=== PATIENT | male | born 1980 | race Caucasian/White ===

== ENCOUNTER 2020-12-21 16:18 | Outpatient (CLI) | payer OTHER, SELFPAY ==
[2020-12-21 16:47] LABS: Cholesterol 220 mg/dL (0-200); HDL Direct 44 mg/dL; Triglycerides 306 mg/dL (<150)
[2020-12-21 16:58] LABS: LDL Cholesterol Direct 122 mg/dL
[2020-12-21 19:06] LABS: Free T4 Free Thyroxine 0.87 ng/mL (0.78-2.19)
== END 2020-12-21 16:19 | disposition home or self-care (01) ==
LOC: ANHLAB 16:20
PROVIDERS: PCP Internal Medicine; Visit Provider Internal Medicine
DX: R94.6 Abnormal results of thyroid function studies (principal); R79.89 Other specified abnormal findings of blood chemistry; E78.5 Hyperlipidemia, unspecified
CPT/HCPCS: 36415; 80061; 84439; 84443

== ENCOUNTER 2021-07-17 09:44 | Outpatient (CLI) | payer OTHER, SELFPAY ==
[2021-07-17 10:12] LABS: Anion Gap 6 mmol/L (8-16); Blood Urea Nitrogen 15 mg/dL (9-20); Calcium 9.7 mg/dL (8.4-10.2); Carbon Dioxide 27 mmol/L (22-30); Chloride 105 mmol/L (98-107); Cholesterol 223 mg/dL (0-200); Estimated Glomerular Filt Rate > 60; Glucose 100 mg/dL (65-110); HDL Direct 44 mg/dL; Potassium 4.7 mmol/L (3.4-5.0); Sodium 138 mmol/L (137-145); Triglycerides 203 mg/dL (<150)
[2021-07-17 10:23] LABS: LDL Cholesterol Direct 156 mg/dL
== END 2021-07-17 09:45 | disposition home or self-care (01) ==
PROVIDERS: PCP Internal Medicine; Visit Provider Internal Medicine
DX: Z13.6 Encounter for screening for cardiovascular disorders (principal); E78.5 Hyperlipidemia, unspecified
CPT/HCPCS: 36415; 80048; 80061

== ENCOUNTER 2021-10-24 19:57 | Emergency (ER) | payer OTHER, SELFPAY ==
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
[2021-10-24 20:03] VITALS: BP 154/69; PULSE 94; RESP 20; TEMP 36.6
== END 2021-10-24 20:18 | disposition home or self-care (01) ==
PROVIDERS: Emergency Provider Nurse Practitioner Family
DX: T24.202A Burn of second degree of unspecified site of left lower limb, except ankle and foot, initial encounter (principal); T25.222A Burn of second degree of left foot, initial encounter; T23.151A Burn of first degree of right palm, initial encounter; X10.2XXA Contact with fats and cooking oils, initial encounter; F41.9 Anxiety disorder, unspecified; F32.A Depression, unspecified
CPT/HCPCS: 99213; G0463